=== PATIENT | female | born 1960 | race Caucasian/White ===

== ENCOUNTER → 2019-02-26 | Day surgery (SDC) | payer BC ==
[~2019-02-26] MED LIST: 0.9 % SODIUM CHLORIDE 1000ML 1,000 ML IV ONE; ACETAMINOPHEN 1,000 MG/100 ML BTL IVPB ONE; CEFAZOLIN 2 Gram 2 GM/50 ML BAG IVPB ONE; DEXAMETHASONE 4 MG/ML 1ML VIAL IVP ONE; FENTANYL PF 0.25MG/5ML AMPUL IV ONE; FENTANYL PF 100MCG/2ML VIAL IV ONE; LIDOCAINE 2% MDV (20MG/ML) 20ML VIAL IV ONE; MIDAZOLAM HCL 2MG/2ML VIAL IV ONE; ONDANSETRON HCL IV 4 MG/2 ML VIAL IVP ONE; PROPOFOL 10 MG/ML VIAL IV ONE; ROPIVACAINE HCL (NAROPIN) /PF 5MG/ML 20ML VIAL IV ONE; SEVOFLURANE 250 ML INH ONE
--- NOTE | 2019-03-01 09:41 | Operative Note ---
DATE OF SERVICE: 02/26/2019. DATE OF SURGERY: 02/26/2019. PREOPERATIVE DIAGNOSIS: Bimalleolar fracture of the left ankle. POSTOPERATIVE DIAGNOSIS: Bimalleolar fracture of the left ankle. OPERATION: Open reduction internal fixation, left ankle. SURGEON: Rubio Eller DO. REFERRING PHYSICIAN: Chantelle Jimenez DO. PROCEDURE: This 59-year-old female was taken to the operating room and placed in the supine position on the operating room table, where general anesthesia was induced. The left lower extremity was elevated. It was exsanguinated and the tourniquet inflated to 300 mmHg after prepping with Hibiclens and draping in the usual sterile fashion. A lateral ankle incision was made, dissecting down through the skin and subcutaneous tissue. Total length of the incision approximately 4 inches. The fracture site of the lateral malleolus was easily identified, and the fracture was irrigated and debrided, removing all clot and debris from the fracture site. The bone reduction clamp was placed across the oblique fracture of the medial malleolus to secure the fracture in anatomic position, and a 5-hole one third Arthrex tubular plate was affixed to the lateral cortex with 2 screws in the distal fragment and 2 screws in the proximal fragment. The image intensifier was brought into the operative field to confirm satisfactory position and alignment of the fracture fragment, as well as position of the hardware. We then directed our attention to the medial malleolus, and a curvilinear incision was made over the medial malleolus, dissection down through the skin and subcutaneous tissue. The periosteum was incised to expose the fracture site, and the fracture ends were debrided. The medial malleolar fragment was actually smaller than it appeared on x-ray. The fracture was reduced, and a guidewire was passed up the bone into the tibial metaphysis. We then measured for a 50 mm 4.5 cannulated Synthes screw, and this was secured in place for additional rotational stability. A 0.54 K-wire was advanced into the medial malleolar fragment, as well as the distal tibia, and the pin cut and bent over, with it being embedded in the head of the screw. The fracture was again imaged with the mini C-arm in the AP and lateral projections, with satisfactory position and alignment of the fracture fragments and hardware being identified. The wound was irrigated and closed with 3-0 Vicryl and 4-0 nylon suture, as was the lateral incision. Sterile dressings were then applied and, with the ankle at 90 degrees, a posterior sugar tong splint was applied, and the patient taken to the recovery room in satisfactory condition. GROSS PATHOLOGY: This patient demonstrated a displaced bimalleolar fracture of the left ankle, which was reduced in the manner described above. The patient had extremely poor quality bone, making it hard to get good purchase with the screws. HARDWARE UTILIZED: A 4.5 cannulated Synthes screw and the lateral plate was an Arthrex 3.5 one third tubular plate with 2 4.0 cancellous screws and 2 cortical screws. MTDD
== END | disposition home or self-care (01) ==
LOC: SUR 10:27
PROVIDERS: ATTEND Orthopaedic Surgery
DX: S82.842A Displaced bimalleolar fracture of left lower leg, initial encounter for closed fracture (principal); M81.0 Age-related osteoporosis without current pathological fracture; Z79.01 Long term (current) use of anticoagulants; K21.9 Gastro-esophageal reflux disease without esophagitis
CPT/HCPCS: 27814; 01480; 64447; 85730; 93005; 76942; C1769; J2405; J3010; J0690; J2795; J7030